=== PATIENT | male | born 2000 | race Caucasian/White ===

== ENCOUNTER → 2024-06-02 11:05 | Outpatient (REF) | payer OTHER, SELFPAY ==
[2024-06-02 12:17] LABS: Erythrocyte Sed Rate 3 mm/hour (0-20)
[2024-06-02 13:37] LABS: Free T4 1.37 ng/dl (0.78-2.19)
[2024-06-02 13:51] LABS: TSH 1.53 uIU/ml (0.47-4.68)
== END ==
LOC: REG 11:05
PROVIDERS: ATTENDING PHYSICIAN Specialist; FAMILY PHYSICIAN Family Medicine
DX: R51.9 Headache, unspecified (principal); E03.9 Hypothyroidism, unspecified
CPT/HCPCS: 36415; 84439; 84443; 85652

== ENCOUNTER → 2024-06-03 10:56 | Outpatient (REF) | payer OTHER, SELFPAY | LOC: RAD 10:56 | PROVIDERS: ATTENDING PHYSICIAN Specialist; FAMILY PHYSICIAN Family Medicine | DX: H53.8 Other visual disturbances (principal) | CPT/HCPCS: 93880 ==

== ENCOUNTER → 2024-06-09 19:09 | Outpatient (REF) | payer OTHER, SELFPAY | LOC: MRI 19:09 | PROVIDERS: ATTENDING PHYSICIAN Specialist; FAMILY PHYSICIAN Family Medicine | DX: R51.9 Headache, unspecified (principal) | CPT/HCPCS: 70553; A9575 ==